=== PATIENT | female | born 1985 | race Caucasian/White ===

== ENCOUNTER 2016-09-02 08:50 | Emergency (ER) | payer MEDICAID ==
--- NOTE | 2016-09-02 09:57 | ED PDOC ---
HPI: Psych/Substance Abuse Time Seen by Provider: 09/02/16 08:57 Chief Complaint (Nursing): Psychiatric Evaluation Chief Complaint (Provider): Aggressive ED Caveat: Uncooperative History/Exam Limitations: no limitations Onset/Duration Of Symptoms: Days (Today) Current Symptoms Are (Timing): Still Present Additional Complaint(s): Pt. found in another person's car and was to get out. Pt. not responding to many questions. Has no suicidal or homicidal ideation. Pt. refusing to answer questions but following commands. Past Medical History Reviewed: Nursing Documentation, Vital Signs - Medical History PMH: Bipolar Disorder - Family History Family History: States: Unknown Family Hx - Home Medications Home Medications: Ambulatory Orders Medication Instructions Recorded Unobtainable [Unobtainable] 02/25/15 - Allergies Allergies/Adverse Reactions: Allergies Allergy/AdvReac Type Severity Reaction Status Date / Time No Known Allergies Allergy Verified 02/25/15 11:08 Review of Systems Review Of Systems: ROS cannot be obtained secondary to pt's inabilty to answer questions. (pt. uncooperative, refuses to answer all questions) Physical Exam - Reviewed Nursing Documentation Reviewed: Yes Vital Signs Reviewed: Yes - Physical Exam Appears: Positive for: Non-toxic, No Acute Distress Head Exam: Positive for: ATRAUMATIC, NORMAL INSPECTION, NORMOCEPHALIC Skin: Positive for: Normal Color, Warm, DRY Eye Exam: Positive for: EOMI, Normal appearance, PERRL ENT: Positive for: Normal ENT Inspection Neck: Positive for: Normal, Painless ROM, Supple Cardiovascular/Chest: Positive for: Regular Rate, Rhythm. Negative for: Edema Respiratory: Positive for: Normal Breath Sounds Gastrointestinal/Abdominal: Positive for: Normal Exam, Bowel Sounds, Soft. Negative for: Tenderness Back: Positive for: Normal Inspection. Negative for: L CVA Tenderness, R CVA Tenderness Extremity: Positive for: Normal ROM. Negative for: Tenderness, Pedal Edema Neurologic/Psych: Positive for: Alert, real estate inspector II-XII, Other (follows commands but does not communicate verbally). Negative for: Gait - Laboratory Results Result Diagrams: 09/02/16 10:52 09/02/16 10:52 Interpretation Of Abn Labs: cannabis and 3.2 k - ECG ECG: Positive for: Interpreted By Me, Viewed By Me ECG Rhythm: Positive for: Normal QRS, Normal ST Segment, Sinus Rhythm - Radiology X-Ray: Interpreted by Me, Viewed By Me X-Ray Interpretation: No Acute Disease - Progress ED Course And Treament: 1339: Stable. AAOx3. Pain free. Tolerated PO. Medically stable for eval by crisis. K replaced with k dur. 1439: Dr. Mayer to fu on K and crisis. Disposition - Clinical Impression Clinical Impression: Psychosis, Hypokalemia - Patient ED Disposition Is Patient to be Admitted: Transfer of Care Counseled Patient/Family Regarding: Studies Performed, Diagnosis - Disposition Disposition Time: 13:40 Condition: STABLE Patient Signed Over To: Severiano Mayer
[2016-09-02 11:03] LABS: BASO % 0.3 % (0.0-2.0); EOS % 0.3 % (0.0-4.0); HEMATOCRIT 38.9 % (34.0-47.0); LYMPH # 1.7 K/uL (1.0-4.3); LYMPH % 15.2 % (20.0-40.0); MEAN CELL VOLUME 89.4 fl (81.0-99.0); MEAN CORPUSCULAR HEMOGLOBIN 29.7 pg (27.0-31.0); MEAN CORPUSCULAR HGB CONC 33.2 g/dL (33.0-37.0); MEAN PLATELET VOLUME 10.5 fl (7.2-11.7); MONO # 0.5 K/uL (0.0-0.8); MONO % 4.7 % (0.0-10.0); NEUT # 8.9 K/uL (1.8-7.0); NEUT % 79.5 % (50.0-75.0); NRBC % 0.1 % (0.0-0.0); RED CELL DISTRIBUTION WIDTH 13.2 % (11.5-14.5); WHITE BLOOD COUNT 11.2 K/uL (4.8-10.8)
--- NOTE | 2016-09-02 11:06 | RAD ---
HISTORY: psych eval COMPARISON: 02/25/2015 FINDINGS: LUNGS: No active pulmonary disease. PLEURA: No significant pleural effusion identified, no pneumothorax apparent. CARDIOVASCULAR: Normal. OSSEOUS STRUCTURES: No significant abnormalities. VISUALIZED UPPER ABDOMEN: Normal. OTHER FINDINGS: None. IMPRESSION: No active disease. No new infiltrate.
[2016-09-02 11:15] LABS: ALB/GLOB RATIO 1.2 (1.0-2.1); ALCOHOL SERUM < 10 mg/dl (0-10); ALKALINE PHOSPHATASE 69 U/L (38-126); ALT/SGPT 40 U/L (9-52); AST/SGOT 31 U/L (14-36); BILIRUBIN,TOTAL 0.6 mg/dl (0.2-1.3); BLOOD UREA NITROGEN 4 mg/dl (7-17); CALCIUM 9.3 mg/dL (8.4-10.2); CARBON DIOXIDE 24 mmol/L (22-30); CHLORIDE 105 mmol/L (98-107); GFR AFRICAN-AMERICAN > 60; GLUCOSE,RANDOM 109 mg/dL (65-105); POTASSIUM 3.2 MMOL/L (3.6-5.0); SODIUM 141 mmol/l (132-148); TOTAL PROTEIN 7.7 G/DL (6.3-8.2)
[2016-09-02] MEDS ORDERED: Potassium Chloride 20 mEq ER Tab PO ONE (13:36)
[2016-09-02 20:37] VITALS: BP 130/80; PULSE 98; RESP 17; TEMP 98.4; O2SAT 100
--- NOTE | 2016-09-02 21:20 | ED PDOC ---
- Laboratory Results Result Diagrams: 09/02/16 10:52 09/02/16 15:00 - ECG O2 Sat by Pulse Oximetry: 100 Disposition - Clinical Impression Clinical Impression: Psychosis, Hypokalemia - POA Present On Arrival: None - Disposition Disposition: Other Institution Disposition Time: 21:19 Condition: STABLE
--- NOTE | 2016-09-04 09:50 | CARD ---
APPROVED REPORT EKG Measurement Heart [id number] <Conclusion> Normal sinus rhythm Normal ECG
== END 2016-09-02 22:37 | disposition short-term general hospital (02) ==
LOC: H.ER 08:50
DX: F29 Unspecified psychosis not due to a substance or known physiological condition (principal); E87.6 Hypokalemia; Z86.59 Personal history of other mental and behavioral disorders; Z00.8 Encounter for other general examination
CPT/HCPCS: 71010; 80053; 81025; 84132; 85025; 93005; 99283; G0480

== ENCOUNTER 2018-07-29 12:16 | Inpatient (IN) | payer MEDICAID, OTHER ==
--- NOTE | 2018-07-29 13:22 | ED PDOC ---
HPI: Psych/Substance Abuse Time Seen by Provider: 07/29/18 12:25 Chief Complaint (Nursing): Psychiatric Evaluation Chief Complaint (Provider): Psych Evaluation ED Caveat: Acuity of Condition, Psychotic History Per: EMS History/Exam Limitations: clinical condition Onset/Duration Of Symptoms: Days Current Symptoms Are (Timing): Still Present Additional Complaint(s): Patient is a 32 year old female who presents to the ED via [facility] for psychiatric evaluation. Per EMS, patient's mother called them to have the patient be evaluated for bizarre behavior x3-4 days. EMS further reports that the patient has a history of Bipolar Disorder and psychiatric admissions. Patient uncooperative upon arrival to ED and refusing to answer questions; patient appears preoccupied. Patient claims she has no idea why she is at the hospital. Patient denies any physical complaints. PMD: unknown LMP: 07/27/18 Past Medical History Reviewed: Historical Data, Nursing Documentation, Vital Signs Vital Signs: Last Vital Signs Temp 98.2 F 07/29/18 12:18 Pulse 93 H 07/29/18 12:18 Resp 18 07/29/18 12:18 BP 134/92 H 07/29/18 12:18 Pulse Ox 99 07/29/18 12:18 - Medical History PMH: Bipolar Disorder - Family History Family History: States: Unknown Family Hx - Home Medications Home Medications: Ambulatory Orders Medication Instructions Recorded Famotidine/Ca Carb/Mag Hydrox 1 each PO BID #28 tab.chew 11/25/17 [Pepcid Complete Tablet Chew] Amoxicillin/Clavulanate [Augmentin 1 tab PO BID #14 tab 04/19/18 875 MG-125 MG] RX: traMADol [Ultram] 50 mg PO TID #7 tab 04/19/18 - Allergies Allergies/Adverse Reactions: Allergies Allergy/AdvReac Type Severity Reaction Status Date / Time No Known Allergies Allergy Verified 04/19/18 16:59 Review of Systems ROS Statement: Except As Marked, All Systems Reviewed And Found Negative Psych: Positive for: Psychosis Physical Exam - Reviewed Nursing Documentation Reviewed: Yes Vital Signs Reviewed: Yes - Physical Exam Comments: GENERALIZED APPEARANCE: Patient is awake, alert, in no acute distress. Appears preoccupied. SKIN: Warm, dry; (-) cyanosis. ENMT: Mucous membranes moist. Airway patent: (-) stridor. NECK: Supple, FROM CHEST AND RESPIRATORY: (-) rales, (-) rhonchi, (-) wheezes; breath sounds eq ualbilaterally. Respirations even and nonlabored. HEART AND CARDIOVASCULAR: (-) irregularity ABDOMEN AND GI: Soft; (-) tenderness. EXTREMITIES: (-) deformity. NEURO AND PSYCH: Mental status as above (+) apparent hallucinations ordelusions. Gait: steady. - Laboratory Results Result Diagrams: 07/29/18 14:10 07/29/18 14:10 Urine POC: Negative - ECG O2 Sat by Pulse Oximetry: 99 (RA) Pulse Ox Interpretation: Normal Medical Decision Making Medical Decision Makin Initial Impression: psychiatric evaluation, psychosis Plan: -1:1 observation -Crisis evaluation -Re-evaluation -UDS -Upreg -U/A 1430 Patient is pacing in ED exam room, still appears preoccupied. No evidence of distress. Per crisis, patient to be screened by [facility]. Additional orders placed for medical clearance. 1555 EKG: NSR @ 97bpm (-) ST elevations, QTc 454 CBC and CMP grossly unremarkable. U/A (+) gross contamination (+) trace leukocytes (-) nitrate. Macrobid 100mg PO ordered. Serum alcohol <10. Utox: (+) cannabinoids. Patient resting comfortably on re-evaluation. Pending CXR evaluation for medical clearance. 1725 Patient resting comfortably in ED stretcher. No distress noted. 1800 CXR: no acute disease as read by Anupama GLOVER Patient is medically stable for further psychiatric evaluation and/or admission. 1934 CXR radiology report Date of service: 07/29/2018 [place] [facility] [place]: Chest radiographs 09/02/2016. FINDINGS: LUNGS: No active pulmonary disease. PLEURA: No significant pleural effusion identified, no pneumothorax apparent. CARDIOVASCULAR: No aortic atherosclerotic calcification present. Normal cardiac size. No pulmonary vascular congestion. OSSEOUS STRUCTURES: No significant abnormalities. VISUALIZED UPPER ABDOMEN: Normal. OTHER FINDINGS: None. IMPRESSION: No interval acute cardiopulmonary disease appreciated. 1934 Patient expressing desire to leave ED. Patient sexually pre-occupied and attempted to disrobe multiple times in ED. Patient unwilling to stay in ED stretcher. Ativan 2mg IM ordered. 1944 Ativan withheld as [facility] screener arrived in ED. 2004 [facility] screener at bedside. 2054 Patient voluntarily signed in for psych admission during [facility] screening. Patient to be admitted for Bipolar Disorder, per Dr Montes. Disposition - Clinical Impression Clinical Impression: Bipolar disorder, UTI (urinary tract infection) - Patient ED Disposition Is Patient to be Admitted: Yes Discussed With : Aleja Montes Doctor Will See Patient In The: Hospital Counseled Patient/Family Regarding: Studies Performed, Diagnosis - Disposition Disposition Time: 20:50 Condition: FAIR - Pt Status Changed To: Hospital Disposition Of: Inpatient - Admit Certification Admit to Inpatient:: After my assessment, the patient will require hospitalization for at least two midnights. This is because of the severity of symptoms shown, intensity of services needed, and/or the medical risk in this patient being treated as an outpatient. - POA Present On Arrival: None Results - Lab Results Lab Results: 07/29/18 07/29/18 07/29/18 14:10 14:10 12:00 WBC 10.5 RBC 4.44 Hgb 13.2 Hct 39.3 MCV 88.5 MCH 29.8 MCHC 33.7 RDW 13.3 Plt Count 296 MPV 10.4 Neut % (Auto) 72.8 Lymph % (Auto) 20.8 [place] % (Auto) 5.4 Eos % (Auto) 0.7 Baso % (Auto) 0.3 Neut # (Auto) 7.6 H Lymph # (Auto) 2.2 [place] # (Auto) 0.6 Eos # (Auto) 0.1 Baso # (Auto) 0.0 Sodium 139 Potassium 3.7 Chloride 100 Carbon Dioxide 24 Anion Gap 19 BUN 6 L Creatinine 0.6 L Est GFR ( Amer) > 60 Est GFR (Non-Af Amer) > 60 Random Glucose 106 H Calcium 9.8 Total Bilirubin 1.0 AST 37 H D ALT 37 Alkaline Phosphatase 69 Total Protein 7.7 Albumin 4.4 Globulin 3.3 Albumin/Globulin Ratio 1.3 Urine Color Martha Urine Clarity Cloudy Urine pH 7.0 Ur Specific [place] 1.026 Urine Protein 100 Urine Glucose (UA) Neg Urine Ketones Trace Urine Blood Moderate Urine Nitrate Negative Urine Bilirubin Negative Urine Urobilinogen 0.2-1.0 Ur Leukocyte Esterase Trace Urine RBC (Auto) 2 Urine Microscopic WBC 5 Ur Squamous Epith Cells 39 H Urine Bacteria Occ H Hyaline Casts >20 H Urine Opiates Screen Urine Methadone Screen Ur Barbiturates Screen Ur Phencyclidine Scrn Ur Amphetamines Screen U Benzodiazepines Scrn U Oth Cocaine Metabols U Cannabinoids Screen Alcohol, Quantitative < 10 07/29/18 12:00 WBC RBC Hgb Hct MCV MCH MCHC RDW Plt Count MPV Neut % (Auto) Lymph % (Auto) [place] % (Auto) Eos % (Auto) Baso % (Auto) Neut # (Auto) Lymph # (Auto) [place] # (Auto) Eos # (Auto) Baso # (Auto) Sodium Potassium Chloride Carbon Dioxide Anion Gap BUN Creatinine Est GFR ( Amer) Est GFR (Non-Af Amer) Random Glucose Calcium Total Bilirubin AST ALT Alkaline Phosphatase Total Protein Albumin Globulin Albumin/Globulin Ratio Urine Color Urine Clarity Urine pH Ur Specific [place] Urine Protein Urine Glucose (UA) Urine Ketones Urine Blood Urine Nitrate Urine Bilirubin Urine Urobilinogen Ur Leukocyte Esterase Urine RBC (Auto) Urine Microscopic WBC Ur Squamous Epith Cells Urine Bacteria Hyaline Casts Urine Opiates Screen Negative Urine Methadone Screen Negative Ur Barbiturates Screen Negative Ur Phencyclidine Scrn Negative Ur Amphetamines Screen Negative U Benzodiazepines Scrn Negative U Oth Cocaine Metabols Negative U Cannabinoids Screen Positive H Alcohol, Quantitative
[2018-07-29 14:12] LABS: SQUAMOUS EPITHIAL 39 /hpf (0-5); URINE BACTERIA OCC (<OCC); URINE BILIRUBIN NEGATIVE (NEGATIVE); URINE BLOOD MODERATE (NEGATIVE); URINE CLARITY CLOUDY (Clear); URINE COLOR AMBER (YELLOW); URINE GLUCOSE (UA) NEG (NEGATIVE); URINE HYALINE CAST >20 /hpf (0-2); URINE LEUKOCYTE ESTERASE TRACE Leu/uL (Negative); URINE PROTEIN 100 mg/dL (NEGATIVE); URINE UROBILINOGEN 0.2-1.0 mg/dL (0.2-1.0)
[2018-07-29 14:19] LABS: PHENCYCLIDINE, UR NEGATIVE (NEGATIVE)
[2018-07-29 14:27] LABS: BARBITURATES, UR NEGATIVE (NEGATIVE); BENZODIAZEPINES, UR NEGATIVE (NEGATIVE); OPIATES, UR NEGATIVE (NEGATIVE)
[2018-07-29 14:29] LABS: BASO % 0.3 % (0.0-2.0); EOS # 0.1 K/uL (0.0-0.7); EOS % 0.7 % (0.0-4.0); HEMOGLOBIN 13.2 g/dL (12.0-16.0); LYMPH # 2.2 K/uL (1.0-4.3); LYMPH % 20.8 % (20.0-40.0); MEAN CELL VOLUME 88.5 fl (81.0-99.0); MEAN CORPUSCULAR HEMOGLOBIN 29.8 pg (27.0-31.0); MEAN CORPUSCULAR HGB CONC 33.7 g/dL (33.0-37.0); MEAN PLATELET VOLUME 10.4 fl (7.2-11.7); MONO # 0.6 K/uL (0.0-0.8); MONO % 5.4 % (0.0-10.0); NEUT # 7.6 K/uL (1.8-7.0); NEUT % 72.8 % (50.0-75.0); RBC 4.44 Mil/uL (3.80-5.20); RED CELL DISTRIBUTION WIDTH 13.3 % (11.5-14.5); WHITE BLOOD COUNT 10.5 K/uL (4.8-10.8)
[2018-07-29 14:36] LABS: ALB/GLOB RATIO 1.3 (1.0-2.1); ALBUMIN 4.4 g/dL (3.5-5.0); ALT/SGPT 37 U/L (9-52); AST/SGOT 37 U/L (14-36); BLOOD UREA NITROGEN 6 mg/dl (7-17); CALCIUM 9.8 mg/dL (8.4-10.2); GFR NON-AFRICAN AMERICAN > 60
--- NOTE | 2018-07-29 19:28 | RAD ---
Date of service: 07/29/2018 HISTORY: [facility] [place] screen COMPARISON: Chest radiographs 09/02/2016. FINDINGS: LUNGS: No active pulmonary disease. PLEURA: No significant pleural effusion identified, no pneumothorax apparent. CARDIOVASCULAR: No aortic atherosclerotic calcification present. Normal cardiac size. No pulmonary vascular congestion. OSSEOUS STRUCTURES: No significant abnormalities. VISUALIZED UPPER ABDOMEN: Normal. OTHER FINDINGS: None. IMPRESSION: No interval acute cardiopulmonary disease appreciated.
[2018-07-29] MEDS ORDERED: Magnesium Hydroxide Susp 30 ml UD PO PRN (22:13)
[2018-07-29] MEDS ORDERED: DiphenhydrAMINE 50 mg/ml Inj IM PRN (22:13)
[2018-07-29] MEDS ORDERED: Alum-Mag Hydrox-Simethicone Susp (30 mL) PO PRN (22:13)
--- NOTE | 2018-07-29 22:52 | PCM.BM ---
<Ree Marsh - Last Filed: 07/29/18 22:49> Treatment Plan Problems - Problems identified on initial assessmt Altered Thought Process Date Initiated: 07/29/18 Time Initiated: 22:49 Assessment reference: NA Status: Active Medication nonadherence Date Initiated: 07/29/18 Time Initiated: 22:50 Assessment reference: NA Status: Active Altered Sleep Patterns Date Initiated: 07/29/18 Time Initiated: 22:50 Assessment reference: NA Status: Active Treatment assets and liabiliti Patient Assests: cooperative, self-reliant, ADL independent, physically healthy, negotiates basic needs Patient Liabilities: live alone, financial problems, poor support system, substance abuse - Milieu Protocol Maintain good personal hygiene: daily Encourage regular showers, every shift Remind patient to perform daily oral care, every shift Assist patient to perform ADL's Maintain personal safety: every shift Educate patient to report safety concerns to staff, every shift Monitor environment for contraband/sharps Medication safety: Monitor for expected outcome, potential side effects: every shift, Assess barriers to learning: every shift, Assess readiness for medication education: every shift <Juana Zhong - Last Filed: 08/07/18 14:25> - Diagnosis (1) Bipolar disorder Status: Acute Interventions: 08/07/18 14:25 psychotherapy, pharmacotherAPY
[2018-07-30 08:37] LABS: T4 12.3 ug/dl (5.5-11.0)
[2018-07-30] MEDS ORDERED: Divalproex 500 mg DR(BID formulation) PO ONE (10:30)
--- NOTE | 2018-07-30 11:58 | CARD ---
APPROVED REPORT Date of service: 07/29/2018 EKG Measurement Heart [id number] [id number] <Conclusion> Normal sinus rhythm Normal ECG
--- NOTE | 2018-07-30 13:21 | PCM.PSYCH ---
Initial Psychiatric Evaluation - Initial Psychiatric Evaluation Type of Admission: Voluntary Legal Status: Capacity Chief Complaint (in patient's own words): I do not know why I am here History of Present Illness and Precipitating Events: pt is 32ys old female with previous psychiatric diagnosis of bipolar disorder , non compliant with medications or follow up, brought to ER by EMS for exhibiting disorganized behaviour noted by her mother talking to self pt on evaluation, manic, with labile affect, ,at times crying and this alternates with laughing inappropriately, guarded, paranoid with poor eye contact, pt speech is underproductive and not goal directed observed to have thought blocking, responding to internal stimuli, reported poor sleep, uses cannabis daily , denied command hallucinations, denied active thoughts of self harm on the unit Current Medications: Active Medications Generic Name Dose Route Start Last Admin Trade Name Freq PRN Reason Stop Dose Admin Acetaminophen 650 mg 07/29/18 22:13 Tylenol 325mg Tab PO Q4 PRN Pain, moderate (4-7) Al Hydrox/Mg Hydrox/Simethicone 30 ml 07/29/18 22:13 Maalox Plus 30 Ml PO Q4 PRN Dyspepsia Aripiprazole 10 mg 07/31/18 09:00 Abilify PO DAILY ARMIN Diphenhydramine HCl 50 mg 07/29/18 22:13 Benadryl IM Q6 PRN Extrapyramidal S/S Unable PO Diphenhydramine HCl 50 mg 07/29/18 22:13 07/29/18 22:31 Benadryl PO 50 mg Q6 PRN Administration Extrapyramidal Symptoms Diphenhydramine HCl 50 mg 07/29/18 22:16 Benadryl PO HS PRN Sleep Divalproex Sodium 1,000 mg 07/30/18 22:00 Monica Du(*Bid*) PO HS ARMIN Haloperidol 5 mg 07/29/18 22:13 07/29/18 22:31 Haldol PO 5 mg Q4 PRN Administration Agitation Haloperidol Lactate 5 mg 07/29/18 22:13 Haldol IM Q4 PRN Agitation, Unable to Take PO Lorazepam 2 mg 07/29/18 22:13 Ativan IM Q4 PRN Anxiety/Agitation,Unable PO Lorazepam 1 mg 07/29/18 22:33 07/29/18 23:56 Ativan PO 1 mg Q8 PRN Administration Agitation Magnesium Hydroxide 30 ml 07/29/18 22:13 Milk Of Magnesia PO HS PRN Constipation Past Psychiatric History - Past Psychiatric History Explanation of prior treatment: pt stated having multiple hospitalizations in [place] but unable to give history History of ETOH/Drug Use: cannabis abuse Pertinent Medical Hx (Current Medical&Sleep Prob, Allergies): Allergies Allergy/AdvReac Type Severity Reaction Status Date / Time No Known Allergies Allergy Verified 04/19/18 16:59 Famotidine/Ca Carb/Mag Hydrox [Pepcid Complete Tablet Chew] 1 each PO BID #28 tab.chew 11/25/17 Amoxicillin/Clavulanate [Augmentin 875 MG-125 MG] 1 tab PO BID #14 tab 04/19/18 traMADol [Ultram] 50 mg PO TID #7 tab 04/19/18 Mental Status Examination - Personal Presentation Personal Presentation: Looks stated age - Affect Affect: Broad Additional comments: labile - Motor Activity Motor Activity: Psychomotor Agitation - Reliability in Providing Information Reliability in Providing Information: Poor, due to alteration in thoughts, Poor, due to altered mood - Speech Speech: Disorganized, Tangential - Mood Mood: Anxious - Formal Thought Process Formal Thought Process: Delusions, Paranoia, Circumstantial - Obsessions/Compulsions Obsessions: No Compulsions: No - Cognitive Functions Orientation: Person, Place Sensorium: Alert Attention/Concentration: Easily distracted Abstract Thinking: [place] Judgement: Imparied, as evidence by: Poor judgement, Imparied, as evidence by: Lack of insight into illness - Risk Risk: Elopement, Diminished functioning - Strength & Assets Inventory Strength & Assets Inventory: Family support - Limitations Additional comments: poor compliance DSM 5 DX - DSM 5 DSM 5 Diagnosis: bipolar I disorder manic severe with psychotic features cannabis use - Recommended/Plan of Treatment Treatment Recommendations and Plan of Treatment: start abilify 5mg daily increase gradually pt reported having galactorrhea when on risperidone start depakote 1500 mg , follow up on depakote level motivational, group and supportive therapy
--- NOTE | 2018-07-30 19:34 | CP.PCM.CON ---
History of Present Illness - History of Present Illness History of Present Illness: 32 y/o female with PMH bipolar disorder not taking any medications brought to ER by EMS for evaluation for bizarre behaviour. As per chart mother called EMS because her daughter was having bizarre behaviour. Medicine consulted because patient is complaining of vomiting . As per patient she has been having lower abdominal pain for 2 weeks with no dysuria, no frequency , no fever , no chills .She had one episode of urinary incontinence just before medical evaluation and was asking to take a shower and see a doctor. She also complained of 2 episodes of vomiting undigested food. Denies chest pain , SOB , palpitations, PND, orthopnea. Patient is agitated during interview. Allergies: NKDA PMH ; Bipolar disorder Medications; None Surgery; None Family history none Social history ; Lives alone, single , sexually active , works with animals, denies smoking , ETOH socially, denies drug abuse, has no children ROS ; 10 point review of system negative except above Review of Systems - Review of Systems All systems: reviewed and no additional remarkable complaints except Past Patient History - Infectious Disease Hx of Infectious Diseases: None - Tetanus Immunizations Tetanus Immunization: Unknown - Past Medical History & Family History Past Medical History?: Yes Past Family History: Reviewed and not pertinent - Past Social History Smoking Status: Never Smoked Chewing Tobacco Use: No Cigar Use: No Alcohol: Social Drugs: Denies Home Situation {Lives}: With Family - CARDIAC Hx Cardiac Disorders: No - PULMONARY Hx Respiratory Disorders: No Hx Tuberculosis: No - NEUROLOGICAL Hx Neurological Disorder: No HX Cerebrovascular Accident: No Hx Seizures: No - HEENT Hx HEENT Problems: No - RENAL Hx Chronic Kidney Disease: No - ENDOCRINE/METABOLIC Hx Endocrine Disorders: No - HEMATOLOGICAL/ONCOLOGICAL Hx Blood Disorders: No Hx Cancer: No Hx Human Immunodeficiency Virus (HIV): No - INTEGUMENTARY Hx Dermatological Problems: No - MUSCULOSKELETAL/RHEUMATOLOGICAL Hx Musculoskeletal Disorders: No - GASTROINTESTINAL Hx Gastrointestinal Disorders: No - GENITOURINARY/GYNECOLOGICAL Hx Genitourinary Disorders: No Hx Sexually Transmitted Disorders: No - PSYCHIATRIC Hx Bipolar Disorder: Yes Hx Substance Use: Yes (MJ use) - SURGICAL HISTORY Hx Surgeries: No - ANESTHESIA Hx Anesthesia: No Meds Allergies/Adverse Reactions: Allergies Allergy/AdvReac Type Severity Reaction Status Date / Time No Known Allergies Allergy Verified 04/19/18 16:59 - Medications Medications: Current Medications Acetaminophen (Tylenol 325mg Tab) 650 mg PO Q4 PRN PRN Reason: Pain, moderate (4-7) Al Hydrox/Mg Hydrox/Simethicone (Maalox Plus 30 Ml) 30 ml PO Q4 PRN PRN Reason: Dyspepsia Aripiprazole (Abilify) 10 mg PO DAILY ARMIN Diphenhydramine HCl (Benadryl) 50 mg IM Q6 PRN PRN Reason: Extrapyramidal S/S Unable PO Diphenhydramine HCl (Benadryl) 50 mg PO Q6 PRN PRN Reason: Extrapyramidal Symptoms Last Admin: 07/29/18 22:31 Dose: 50 mg Diphenhydramine HCl (Benadryl) 50 mg PO HS PRN PRN Reason: Sleep Divalproex Sodium (Depakote Dr(*Bid*)) 1,000 mg PO HS ARMIN Haloperidol (Haldol) 5 mg PO Q4 PRN PRN Reason: Agitation Last Admin: 07/29/18 22:31 Dose: 5 mg Haloperidol Lactate (Haldol) 5 mg IM Q4 PRN PRN Reason: Agitation, Unable to Take PO Lorazepam (Ativan) 2 mg IM Q4 PRN PRN Reason: Anxiety/Agitation,Unable PO Lorazepam (Ativan) 1 mg PO Q8 PRN PRN Reason: Agitation Last Admin: 07/29/18 23:56 Dose: 1 mg Magnesium Hydroxide (Milk Of Magnesia) 30 ml PO HS PRN PRN Reason: Constipation Nitrofurantoin Macrocrystals (Macrobid) 100 mg PO Q12 [facility]; Protocol Stop: 08/04/18 21:01 Physical Exam - Constitutional Appears: Non-toxic, No Acute Distress, Agitated - Head Exam Head Exam: ATRAUMATIC, NORMOCEPHALIC - Eye Exam Eye Exam: EOMI, PERRL Pupil Exam: NORMAL ACCOMODATION - ENT Exam ENT Exam: Mucous Membranes Moist, Normal Exam - Neck Exam Neck exam: Positive for: Full Rom, Normal Inspection - Respiratory Exam Respiratory Exam: Clear to Auscultation Bilateral, NORMAL BREATHING PATTERN. absent: Rales, Rhonchi, Wheezes - Cardiovascular Exam Cardiovascular Exam: REGULAR RHYTHM, RRR, +S1, +S2. absent: JVD - GI/Abdominal Exam GI & Abdominal Exam: Normal Bowel Sounds, Soft. absent: Distended, Guarding, Rebound, Tenderness - Rectal Exam Rectal Exam: Deferred - Extremities Exam Extremities exam: Positive for: normal capillary refill, normal inspection, pedal pulses present - Back Exam Back exam: NORMAL INSPECTION - Neurological Exam Neurological exam: Alert, CN II-XII Intact, Oriented x3, Reflexes Normal - Psychiatric Exam Psychiatric exam: Agitated, Normal Affect, Normal Mood - Skin Skin Exam: Dry, Intact, Normal Color, Warm Results - Vital Signs Recent Vital Signs: Last Vital Signs Temp 97.7 F 07/30/18 17:32 Pulse 106 H 07/30/18 17:32 Resp 20 07/30/18 17:32 BP 125/84 07/30/18 17:32 Pulse Ox 98 07/29/18 21:53 - Labs Result Diagrams: 07/29/18 14:10 07/29/18 14:10 Labs: Laboratory Results - last 24 hr 07/30/18 07/30/18 07/30/18 07:58 07:58 07:58 Hemoglobin A1c 5.0 Triglycerides 61 Cholesterol 129 LDL Cholesterol Direct 66 HDL Cholesterol 43 Thyroxine (T4) 12.3 H TSH 3rd Generation 2.08 RPR Nonreactive Assessment & Plan - Assessment and Plan (Free Text) Assessment: 32 y/0 female withPMH bipolar disorder not on any medicatoiosn ad,mitted to psych with bizarre behaviour. Medicine consulted because patient complaining of urinary incontinence ,lower abdominal pain ad vomiting. All labs and vital signs reviewed 1. Bipolar disorder psychiatric management check TSH 2. UTI send urine culture Start Nitrofurantoine PO
[2018-07-30 21:02] VITALS: O2SAT 99
[2018-07-30] MEDS ORDERED: Divalproex 500 mg DR(BID formulation) PO SCH (22:00)
--- NOTE | 2018-07-31 15:30 | PCM.PYCHPN ---
Psychiatric Progress Note - Psychiatric Progress Note Patient seen today, length of contact: pt evaluated discussed with team chart reviewed Patient Chief Complaint: I need my mother to bring my belongings Problems Identified/Issues Discussed: pt evaluated with treatment team, presenting with labile affect, increased irritability, pressured speech, poor concentration with loose association concrete thought process, requesting to be discharged with limited insight into illness, psychoeducation provided, discussed with pt the need to continue with treatment for stabilization , discussed increasing depakote and abilify gradually, no reported side effects pt contiunes to be disorganized, denied command hallucinations, denied active suicidal ideation on the unit Medical Problems: pt stated having multiple hospitalizations in [place] but unable to give history DSM 5 Symptoms Update: bipolar I disorder manic severe cannabis abuse Medication Change: Yes Medical Record Reviewed: Yes (increase depkote ) Mental Status Examination - Cognitive Function Orientation: Person, Place Memory: Intact Attention: Poor Concentration: Poor Association: Loose Fund of Knowledge: Poor Decription of patient's judgement and insights: poor insight and judgment - Mood Mood: Anxious - Affect Affect: Broad Additional comments: labile - Speech Speech: Pressured - Formal Thought Process Formal Thought Process: Delusions, Paranoia, Circumstantial - Suicidal Ideation Suicidal Ideation: No - Homicidal Ideation Homicidal Ideation: No Goal/Treatment Plan - Goal/Treatment Plan Need for Continued Stay: Remain at risks for inpatient hospitalization, Discharge may exacerbated symptoms Progress Toward Problem(s) and Goals/Treatment Plan: increase abilify 10mg daily pt reported having galactorrhea when on risperidone depakote 1500 mg , follow up on depakote level motivational, group and supportive therapy
[2018-07-31] MEDS: Divalproex 500 mg ER (ONCE DAILY formulation) PO SCH (21:08)
[2018-08-01] MEDS ORDERED: OLANZapine 5 mg Disintegrating Tab PO STA (10:53)
--- NOTE | 2018-08-01 15:45 | PCM.PYCHPN ---
Psychiatric Progress Note - Psychiatric Progress Note Patient seen today, length of contact: pt evaluated discussed with team chart reviewed Patient Chief Complaint: I hope my mother takes me back Problems Identified/Issues Discussed: pt evaluated , continues to be manic , labile irritable, with disorganized behaviour, pt had urinated on herself twice, observed pacing in the hallway, guarded, internally preoccupied, needs frequent redirection, discussed with pt cross tapering abilify with zyprexa, pt denied command hallucinations, denied active suicidal or homicidal ideation Medical Problems: pt stated having multiple hospitalizations in [place] but unable to give history DSM 5 Symptoms Update: schizoaffective disorder bipolar Medication Change: Yes (start zyprexa) Medical Record Reviewed: Yes (increase depkote ) Mental Status Examination - Cognitive Function Orientation: Person, Place Memory: Intact Attention: Poor Concentration: Poor Association: Loose Fund of Knowledge: Poor Decription of patient's judgement and insights: poor insight and judgment - Mood Mood: Anxious - Affect Affect: Broad - Speech Speech: Pressured - Formal Thought Process Formal Thought Process: Delusions, Paranoia, Circumstantial - Suicidal Ideation Suicidal Ideation: No - Homicidal Ideation Homicidal Ideation: No Goal/Treatment Plan - Goal/Treatment Plan Need for Continued Stay: Remain at risks for inpatient hospitalization, Discharge may exacerbated symptoms Progress Toward Problem(s) and Goals/Treatment Plan: discontinue abilify, start zyprexa 5mg bid depakote 1500 mg , follow up on depakote level motivational, group and supportive therapy
[2018-08-01] MEDS: Divalproex 500 mg ER (ONCE DAILY formulation) PO SCH (21:43)
[2018-08-01] MEDS: OLANZapine 5 mg Disintegrating Tab PO SCH (21:44)
[2018-08-01] MEDS ORDERED: OLANZapine 10 mg Disintegrating Tab PO SCH (22:00)
--- NOTE | 2018-08-02 14:23 | PCM.PYCHPN ---
Psychiatric Progress Note - Psychiatric Progress Note Patient seen today, length of contact: pt evaluated discussed with team chart reviewed Patient Chief Complaint: I am feeling better and I want to get back to work Problems Identified/Issues Discussed: pt evaluated , continues to be labile and hypomanic, thought process less disorganized, less internally preoccupied, psychoeducation provided, discussed importance of medication compliance , no current reported side effects, pt denied command hallucinations, denied active thoughts of self harm on the unit Medical Problems: pt stated having multiple hospitalizations in [place] but unable to give history Medication Change: No Medical Record Reviewed: Yes Mental Status Examination - Cognitive Function Orientation: Person, Place Memory: Intact Attention: Poor Concentration: Poor Association: Loose Fund of Knowledge: Poor Decription of patient's judgement and insights: poor insight and judgment - Mood Mood: Anxious - Affect Affect: Broad - Speech Speech: Pressured - Formal Thought Process Formal Thought Process: Delusions, Paranoia, Circumstantial - Suicidal Ideation Suicidal Ideation: No - Homicidal Ideation Homicidal Ideation: No Goal/Treatment Plan - Goal/Treatment Plan Need for Continued Stay: Remain at risks for inpatient hospitalization, Discharge may exacerbated symptoms Progress Toward Problem(s) and Goals/Treatment Plan: zyprexa 5mg qhs depakote 1500 mg , follow up on depakote level motivational, group and supportive therapy
[2018-08-02] MEDS: OLANZapine 5 mg Disintegrating Tab PO SCH (21:23)
[2018-08-02] MEDS: Divalproex 500 mg ER (ONCE DAILY formulation) PO SCH (21:23)
--- NOTE | 2018-08-03 17:29 | PCM.PYCHPN ---
Psychiatric Progress Note - Psychiatric Progress Note Patient seen today, length of contact: pt evaluated discussed with team chart reviewed Patient Chief Complaint: was feeling depressed and anxious not sleeping well beginning to feel a little better. staff report pt rx adherent, seen walking in unit Problems Identified/Issues Discussed: alteration in mood alteration in coping Medical Problems: per chart Diagnostic Results: per psychiatry per medicine per nursing per social work coordinator per recreational therapy DSM 5 Symptoms Update: some improvement sleep mood somewhat less anxious Medication Change: No Medical Record Reviewed: Yes Consults ordered or reviewed: pt seen by hospitalist Mental Status Examination - Cognitive Function Orientation: Person, Place Memory: Intact Attention: Poor Concentration: Poor Association: Loose Fund of Knowledge: Poor Decription of patient's judgement and insights: impaired - Mood Mood: Anxious - Affect Affect: Broad - Speech Speech: Pressured - Formal Thought Process Formal Thought Process: Delusions, Paranoia, Circumstantial - Suicidal Ideation Suicidal Ideation: No - Homicidal Ideation Homicidal Ideation: No Goal/Treatment Plan - Goal/Treatment Plan Need for Continued Stay: Remain at risks for inpatient hospitalization, Discharge may exacerbated symptoms Progress Toward Problem(s) and Goals/Treatment Plan: inpt milieu adjust meds per status discharge planning in progress Estimated Date of D/C: 08/09/18 - Smoking Cessation Smoking Cessation Initiated: No Reason for not providing: deferred
[2018-08-03] MEDS: OLANZapine 5 mg Disintegrating Tab PO SCH (21:13)
[2018-08-03] MEDS: Divalproex 500 mg ER (ONCE DAILY formulation) PO SCH (21:13)
[2018-08-04] MEDS: OLANZapine 5 mg Disintegrating Tab PO SCH (21:14)
[2018-08-04] MEDS: Divalproex 500 mg ER (ONCE DAILY formulation) PO SCH (21:14)
--- NOTE | 2018-08-04 22:44 | PCM.PYCHPN ---
Psychiatric Progress Note - Psychiatric Progress Note Patient seen today, length of contact: pt evaluated discussed with team chart reviewed Patient Chief Complaint: feeling less depressed and anxious with improving sleep beginnning to feel a little better. staff report pt rx adherent, seen walking in unit Problems Identified/Issues Discussed: alteration in mood alteration in coping Medical Problems: per chart Diagnostic Results: per psychiatry per medicine per nursing per protective services social worker per recreational therapy DSM 5 Symptoms Update: improving mood and sleep Medication Change: No Medical Record Reviewed: Yes Consults ordered or reviewed: pt being followed by medical team Mental Status Examination - Cognitive Function Orientation: Person, Place Memory: Intact Attention: Poor Concentration: Poor Association: Loose Fund of Knowledge: Poor Decription of patient's judgement and insights: impaired - Mood Mood: Anxious - Affect Affect: Broad - Speech Speech: Pressured - Formal Thought Process Formal Thought Process: Delusions, Paranoia, Circumstantial - Suicidal Ideation Suicidal Ideation: No - Homicidal Ideation Homicidal Ideation: No Goal/Treatment Plan - Goal/Treatment Plan Need for Continued Stay: Remain at risks for inpatient hospitalization, Discharge may exacerbated symptoms Progress Toward Problem(s) and Goals/Treatment Plan: inpt milieu adjust meds per status discharge planning in progress Estimated Date of D/C: 08/09/18 - Smoking Cessation Smoking Cessation Initiated: No
--- NOTE | 2018-08-05 15:50 | PCM.PYCHPN ---
Psychiatric Progress Note - Psychiatric Progress Note Patient seen today, length of contact: pt evaluated discussed with team chart reviewed Patient Chief Complaint: I will try to take the medicine Problems Identified/Issues Discussed: pt evaluated , continues to be manic, irritable, labile, seen pacing on the unit guarded paranoid with domineering affect, poor insight into illness reported by staff to be partially compliant with medications, psychoeducation provided, discussed with pt importance of medication compliance process pt appears paranoid and internally preoccupied, e , no current reported side effects, pt denied command hallucinations, denied active thoughts of self harm on the unit Medical Problems: pt stated having multiple hospitalizations in [place] but unable to give history DSM 5 Symptoms Update: bipolar disorder manic severe with psychotic features Medication Change: Yes (increase zyprexa) Medical Record Reviewed: Yes Mental Status Examination - Cognitive Function Orientation: Person, Place Memory: Intact Attention: Poor Concentration: Poor Association: Loose Fund of Knowledge: Poor - Mood Mood: Anxious - Affect Affect: Broad - Speech Speech: Pressured - Formal Thought Process Formal Thought Process: Delusions, Paranoia, Circumstantial - Suicidal Ideation Suicidal Ideation: No - Homicidal Ideation Homicidal Ideation: No Goal/Treatment Plan - Goal/Treatment Plan Need for Continued Stay: Remain at risks for inpatient hospitalization, Discharge may exacerbated symptoms Progress Toward Problem(s) and Goals/Treatment Plan: increase zyprexa 10mg qhs depakote 1500 mg , qhs encourage compliance motivational, group and supportive therapy Estimated Date of D/C: 08/09/18
[2018-08-05] MEDS: OLANZapine 10 mg Disintegrating Tab PO SCH (21:21)
[2018-08-05] MEDS: Divalproex 500 mg ER (ONCE DAILY formulation) PO SCH (21:21)
--- NOTE | 2018-08-06 10:37 | PCM.PYCHPN ---
Psychiatric Progress Note - Psychiatric Progress Note Patient seen today, length of contact: pt evaluated discussed with team chart reviewed Patient Chief Complaint: I need to leave now Problems Identified/Issues Discussed: pt on evaluation angry irritable domineering, labile pacing on the unit, pt has been selective with medications, refusing most of it ,CONTINUES TO BE PSYCHOTIC INTERNALLY PREOCCUPIED, OBSERVED TALKING TO SELF , with thought blocking , responding to internal stimuli pt requesting to be discharged signed 48 hour notice, continues to be danger to self ,and others will be referred to screening for involuntary admission Medical Problems: pt stated having multiple hospitalizations in [place] but unable to give history DSM 5 Symptoms Update: bipolar disorder manic severe with psychotic features Medication Change: Yes (increase zyprexa) Medical Record Reviewed: Yes Mental Status Examination - Cognitive Function Orientation: Person, Place Memory: Intact Attention: Poor Concentration: Poor Association: Loose Fund of Knowledge: Poor - Mood Mood: Anxious - Affect Affect: Broad - Speech Speech: Pressured - Formal Thought Process Formal Thought Process: Delusions, Paranoia, Circumstantial - Suicidal Ideation Suicidal Ideation: No - Homicidal Ideation Homicidal Ideation: No Goal/Treatment Plan - Goal/Treatment Plan Need for Continued Stay: Remain at risks for inpatient hospitalization, Discharge may exacerbated symptoms Progress Toward Problem(s) and Goals/Treatment Plan: pt angry labile hyperactive manic nd disorganized, non compliant with medications and requesting to be discharged,pt will be referred for screening for involuntary admission as she needs further stabilization increase zyprexa 10mg qhs depakote 1500 mg , qhs encourage compliance motivational, group and supportive therapy Estimated Date of D/C: 08/09/18
[2018-08-06] MEDS: Divalproex 500 mg ER (ONCE DAILY formulation) PO SCH (21:09)
[2018-08-06] MEDS: OLANZapine 10 mg Disintegrating Tab PO SCH (21:09)
[2018-08-07 09:08] VITALS: RESP 18; TEMP 97.5
--- NOTE | 2018-08-07 14:31 | PCM.PYCHDC ---
Mental Status Examination - Mental Status Examination Orientation: Person, Place, Situation Memory: Intact Mood: Anxious Affect: Broad Speech: Loud Attention: Poor Concentration: Poor Association: Loose Fund of Knowledge: Poor Formal Thought Process: Delusions, Paranoia Description of patient's judgement and insight: poor insight and judgment Psychotic Thoughts and Behaviors: delusions of persecution Suicidal Ideation: No Current Homicidal Ideation?: No Discharge Summary - Discharge Note Reason for Hospitalization: pt is 32ys old female with previous psychiatric diagnosis of bipolar disorder , non compliant with medications or follow up, brought to ER by EMS for exhibiting disorganized behaviour noted by her mother talking to self pt on evaluation, manic, with labile affect, ,at times crying and this alternates with laughing inappropriately, guarded, paranoid with poor eye contact, pt speech is underproductive and not goal directed observed to have thought blocking, responding to internal stimuli, reported poor sleep, uses cannabis daily , denied command hallucinations, denied active thoughts of self harm on the unit Consultations:: List each consultation separately and include: 1. Reason for request. 2. Findings. 3. Follow-up Summary of Hospital Course include:: 1. Description of specific treatment plan utilized for patients during their course of treatmen. 2. Summarize the time- course for resolution of acute symptoms and/or regressed behaviors. 3. Describe issues identified and worked on during hospitalization. 4. Describe medication utilized. 5. Describe medical problems identified and treated. 6. Reassessment of suicide risk Summary of Hospital Course: pt on admission was manic , labile, irritable, domineering, paranoid, pt was started on depakote and zyprexa, pt was selective and partially compliant with medications with limited insight into illness pt signed 48 hour notice requesting to be discharged pt was referred for screening for involuntary admission . pt was accepted by [facility] [place] for further stabilization - Diagnosis (1) Bipolar disorder Current Visit: Yes Status: Acute - Final Diagnosis (DSM 5) Condition upon Discharge: FAIR DSM 5: bipolar I disorder MRE manic severe with psychotic features Disposition: DISCHARGE TO PSYCH HOSPITAL Follow-up Treatment Plan: pt angry labile hyperactive manic nd disorganized, non compliant with medications and requesting to be discharged,pt will be referred for screening for involuntary admission as she needs further stabilization increase zyprexa 10mg qhs depakote 1500 mg , qhs encourage compliance motivational, group and supportive therapy - Antipsychotic Medications Pt discharged on 2 or more routine antipsychotic medications: No
--- NOTE | 2018-08-07 16:50 | CP.PCM.PCO ---
<Gonsalo Samuel - Last Filed: 08/07/18 16:47> Addendum Addendum: 08/07/18 16:47 Patient is medical clear to be transferred to [facility] [place] for involuntary admission and to c/w psyq treatment. Chart reviewed,labs reviewed . pt hemodynamically stable. Case discussed with Dr Muhammad. <Staci Muhammad - Last Filed: 08/08/18 09:07> Attending/Attestation - Attestation I have personally seen and examined this patient.: Yes I have fully participated in the care of the patient.: Yes I have reviewed all pertinent clinical information: Yes Notes (Text): 08/08/18 09:07 Agree with findings and plan as above.
[2018-08-07 18:30] VITALS: BP 138/89; PULSE 88
[2018-08-07] MEDS: Divalproex 500 mg ER (ONCE DAILY formulation) PO SCH (21:46)
[2018-08-07] MEDS: OLANZapine 10 mg Disintegrating Tab PO SCH (21:46)
--- NOTE | 2018-08-08 08:32 | PCM.BM ---
Treatment Plan Problems - Problems identified on initial assessmt Altered Thought Process Date Initiated: 07/29/18 Time Initiated: 22:49 Assessment reference: NA Status: Active Medication nonadherence Date Initiated: 07/29/18 Time Initiated: 22:50 Assessment reference: NA Status: Active Altered Sleep Patterns Date Initiated: 07/29/18 Time Initiated: 22:50 Assessment reference: NA Status: Active Treatment assets and liabiliti Patient Assests: cooperative, self-reliant, ADL independent, physically healthy, negotiates basic needs Patient Liabilities: live alone, financial problems, poor support system, substance abuse - Milieu Protocol Maintain good personal hygiene: daily Encourage regular showers, every shift Remind patient to perform daily oral care, every shift Assist patient to perform ADL's Maintain personal safety: every shift Educate patient to report safety concerns to staff, every shift Monitor environment for contraband/sharps Medication safety: Monitor for expected outcome, potential side effects: every shift, Assess barriers to learning: every shift, Assess readiness for medication education: every shift Milieu Narrative: pt angry labile hyperactive manic nd disorganized, non compliant with medications and requesting to be discharged,pt will be referred for screening for involuntary admission as she needs further stabilization increase zyprexa 10mg qhs depakote 1500 mg , qhs encourage compliance motivational, group and supportive therapy Discharge/Continuing Care - Treatment Team Participation Patient/Family/SO Statement: pt angry labile hyperactive manic nd disorganized, non compliant with medications and requesting to be discharged,pt will be referred for screening for involuntary admission as she needs further stabilization increase zyprexa 10mg qhs depakote 1500 mg , qhs encourage compliance motivational, group and supportive therapy Treatment Plan Review - Problem Altered Thought Process Time Initiated: :49 Medication nonadherence Time Initiated: 22:50 Altered Sleep Patterns Time Initiated: 22:50 - Discharge / Continuing Care Discharge to:: Other (Pt was seen in treatment team on 08/07/18 for review. Pt reported she is "ok." Pt acknowledged that a screener from [facility] [place] came to see her "overnight." Staff then explained that pt was accepted to [facility] [place] for involuntary treatment and will be transferred once a bed is available. Staff explained that pt is not stable and since she signed a 48 hour notice it was determined that further treatment is necessary. Pt was initially very upset about this, but then through speaking with staff appeared to come to terms with it. Pt denied current SI/HI and denied AVT hallucinations, yet her speech was tangential, her eye contact was intense and her thought process and content was littered with delusions. Pt also lacks almost complete insight into her mental illness and current condition. )
== END 2018-08-07 22:30 | DRG 753 ==
LOC: H.ER 12:16 → H.ERHOLD 21:03 → H.PSYCH 22:10
PROVIDERS: ADMIT Psychiatry & Neurology Psychiatry; ATTEND Psychiatry & Neurology Psychiatry
PROC: GZHZZZZ Group Psychotherapy (ICD-10-PCS; principal; 2018-07-29)
PROC: GZ58ZZZ Individual Psychotherapy, Cognitive-Behavioral (ICD-10-PCS; 2018-07-29)
PROC: HZ52ZZZ Individual Psychotherapy for Substance Abuse Treatment, Cognitive-Behavioral (ICD-10-PCS; 2018-07-29)
DX: F31.2 Bipolar disorder, current episode manic severe with psychotic features (principal); Z91.14 Patient's other noncompliance with medication regimen; N39.0 Urinary tract infection, site not specified; F12.10 Cannabis abuse, uncomplicated; R32 Unspecified urinary incontinence